=== PATIENT | male | born 1975 | race Caucasian/White ===

== ENCOUNTER → 2017-04-12 21:28 | Outpatient (CLI) | payer OTHER | END | disposition home or self-care (01) | LOC: D.LABREF 21:28 | PROVIDERS: Family Medicine | DX: M25.50 Pain in unspecified joint (principal) ==

== ENCOUNTER → 2017-04-18 09:07 | Outpatient (CLI) | payer OTHER | END | disposition home or self-care (01) | LOC: D.MRI 08:30 | DX: R20.2 Paresthesia of skin (principal) ==

== ENCOUNTER → 2017-10-20 12:35 | Outpatient (CLI) | payer OTHER ==
[2017-10-20 15:30] LABS: BASOPHILS 0.1 % (0-2); EOSINOPHILS 1.3 % (0-7); HEMOGLOBIN 14.8 g/dL (13.5-17.5); IMMATURE GRANULOCYTES 0.1 % (0-5); LYMPHOCYTES 19.2 % (15-50); MCH 29.1 pg (26.0-34.0); MCHC 34.4 g/dL (31.0-37.0); MCV 84.6 fL (80.0-100.0); MEAN PLATELET VOLUME 10.4 fL (7.4-10.4); MONOCYTES 6.2 % (2-11); NEUTROPHILS 73.1 % (40-80); PLATELET COUNT 203 10x3/uL (130-400); RBC 5.08 10x6/uL (4.20-6.10); RDW 13.6 % (11.5-14.5)
[2017-10-20 15:52] LABS: ALBUMIN 4.1 g/dL (3.4-5.0); ANION GAP 11.6 mmol/L (8-16); BILIRUBIN - TOTAL 0.55 mg/dL (0.2-1.3); CALCIUM 9.3 mg/dL (8.5-10.1); CARBON DIOXIDE 29.3 mmol/L (21.0-32.0); CREATININE - SERUM 1.2 mg/dL (0.6-1.3); POTASSIUM - SERUM 3.9 mmol/L (3.5-5.1); PROTEIN - SERUM 7.4 g/dL (6.4-8.2); THYROID STIMULATING HORMONE 0.91 uIU/mL (0.36-3.74)
[2017-10-20 16:31] LABS: ERYTHROCYTE SEDIMENTATION RATE 3 mm/hr (0-15)
[2017-10-22 06:12] LABS: THYROID PEROXIDASE ABS 18 IU/mL (0-34)
[2017-10-25 15:13] LABS: TESTOSTERONE - FREE 2.4 pg/mL (6.8-21.5); TESTOSTERONE - SERUM 161 ng/dL (264-916)
== END | disposition home or self-care (01) ==
LOC: D.LAB 12:35
PROVIDERS: Emergency Medicine
DX: Z00.00 Encounter for general adult medical examination without abnormal findings (principal); E03.9 Hypothyroidism, unspecified; Z13.29 Encounter for screening for other suspected endocrine disorder

== ENCOUNTER → 2018-06-30 07:16 | Outpatient (CLI) | payer OTHER | END | disposition home or self-care (01) | LOC: D.MRI 07:16 | DX: M25.561 Pain in right knee (principal) ==

== ENCOUNTER → 2018-08-03 07:09 | Outpatient (CLI) | payer OTHER | END | disposition home or self-care (01) | LOC: D.MRI 07:00 | DX: M54.16 Radiculopathy, lumbar region (principal) ==

== ENCOUNTER → 2019-03-15 12:31 | Outpatient (CLI) | payer OTHER | END | disposition home or self-care (01) | LOC: D.MRI 01-24 08:00 | PROVIDERS: ATTEND Family Medicine | DX: M51.36 Other intervertebral disc degeneration, lumbar region (principal) ==